=== PATIENT | male | born 1945 | race Caucasian/White ===

== ENCOUNTER 2016-12-01 09:40 | Emergency (ER) | payer OTHER ==
[2016-12-01 09:56] VITALS: BP 149/93; PULSE 79; TEMP 98.1; BMI 33.6
[2016-12-01] MEDS ORDERED: KETOROLAC TROMETHAMINE 15 MG/ML VIAL IVPUSH ONE (10:56)
[2016-12-01] MEDS ORDERED: KETOROLAC TROMETHAMINE 30 MG/1 ML VIAL ONE (11:02)
--- NOTE | 2016-12-01 11:14 | PDOC ---
History of Present Illness - General Chief Complaint: Pain Stated Complaint: BACK PAIN Time Seen by Provider: 12/01/16 10:42 History Source: Patient Exam Limitations: No Limitations - History of Present Illness Travel History: No Initial Comments: 12/01/16 11:11 71 yr male history of HTN, kidney stones presents with low back pain radiates to his suprapubic area and testicles started early this am. Pt denies fever, vomited x2 . Pt states feels the same as previous kidney stones. Timing/Duration: reports: constant, changing over time Quality: reports: moderate Abdominal Pain Onset Location: reports: suprapubic Past History - Past Medical History Allergies/Adverse Reactions: Allergies Allergy/AdvReac Type Severity Reaction Status Date / Time No Known Allergies Allergy Verified 12/01/16 09:56 Home Medications: Ambulatory Orders Ketorolac Tromethamine [Toradol] 10 mg PO TID PRN #15 tablet 12/01/16 Tamsulosin HCl [Flomax] 0.4 mg PO HS #14 cap.er.24h 12/01/16 Diabetes: Yes Disorders: Yes (KIDNEY STONES) HTN: Yes Other medical history: ARTHRITIS - Family Disease History Comment:: 12/01/16 11:13 none relevant - Psycho/Social/Smoking Cessation Hx Anxiety: No Suicidal Ideation: No Smoking History: Never smoked Hx Alcohol Use: No Drug/Substance Use Hx: No Substance Use Type: None Abd/GI Specific PMHX - Complaint Specific PMHX Colitis: No Diverticulitis: No Gall Bladder Disease: No GERD: No Hepatitis: No Irritable Bowel Synd (IBS): No Pancreatitis: No GI Ulcer Disease: No Review of Systems - Review of Systems Able to Perform ROS?: Yes Is the patient limited [place] proficient: No Constitutional: No: Symptoms Reported HEENTM: No: Symptoms Reported ABD/GI: Yes: Symptoms Reported : Yes: Symptoms Reported *Physical Exam - Vital Signs Last Vital Signs Temp Pulse Resp BP Pulse Ox 98.1 F 79 20 149/93 96 12/01/16 09:53 12/01/16 09:53 12/01/16 09:53 12/01/16 09:53 12/01/16 09:53 - Physical Exam General Appearance: Yes: Nourished, Appropriately Dressed HEENT: positive: EOMI, MEÑO, TMs Normal, Pharynx Normal Neck: positive: Supple Respiratory/Chest: positive: Lungs Clear, Normal Breath Sounds Cardiovascular: positive: Regular Rhythm, Regular Rate Gastrointestinal/Abdominal: positive: Normal Bowel Sounds, Tender (suprapubic ) , Soft Musculoskeletal: positive: Normal Inspection Extremity: positive: Normal Capillary Refill, Normal Inspection, Normal Range of Motion Integumentary: positive: Normal Color, Dry, Warm Neurologic: positive: tourist escort II-XII NML intact, Fully Oriented, Alert, Normal Mood/ Affect ED Treatment Course - LABORATORY CBC & Chemistry Diagram: 12/01/16 10:55 12/01/16 10:55 - Consult/PCP Time Called: 13:00 Consult Reason/Comments: Dr.El Hester on vacation covering is Dr Rahul Gonsalez - Additional Consults Time Called: 13:25 Reason/Comments: paged no answer x3 Medical Decision Making - Medical Decision Making 12/01/16 11:14 cc: flank pain to groin, scrotum no testicle tenderness pt is able to urinate no fever no nausea at present 12/01/16 12:09 12/01/16 13:16 pain improved with toradol. ct resulted pt is pain free no nausea or vomiting. all dc plans discussed with pt and his and all questions asked and answered. 12/01/16 13:16 12/01/16 14:14 12/01/16 14:14 *DC/Admit/Observation/Transfer Diagnosis at time of Disposition: Renal colic on left side - Discharge Dispostion Disposition: HOME Condition at time of disposition: Good - Prescriptions Prescriptions: Tamsulosin HCl [Flomax] 0.4 mg PO HS #14 cap.er.24h Ketorolac Tromethamine [Toradol] 10 mg PO TID PRN #15 tablet PRN Reason: Pain - Referrals Referrals: Tere Murphy MD [Primary Care Provider] - - Patient Instructions Additional Instructions: drink lots of water strain all urine take the medication as prescribed follow with the urologist call today to make appointment return if any worsening symptoms
[2016-12-01 11:30] LABS: MCH 28.8 pg (25.7-33.7); MCHC 34.2 g/dl (32.0-35.9); MEAN CELL VOLUME 84.3 fl (80-96); MEAN PLT VOLUME 9.1 fl (7.5-11.1); PLATELET COUNT 168 K/MM3 (134-434); RDW 13.8 % (11.9-15.9); WHITE BLOOD COUNT 7.3 K/mm3 (4.0-10.0)
[2016-12-01 11:32] LABS: URINE APPEARANCE CLEAR; URINE BILIRUBIN NEGATIVE (NEGATIVE); URINE COLOR YELLOW; URINE GLUCOSE (UA) NEGATIVE (NEGATIVE); URINE KETONE NEGATIVE (NEGATIVE); URINE LEUK ESTERASE NEGATIVE (NEGATIVE); URINE NITRITE NEGATIVE (NEGATIVE); URINE PROTEIN NEGATIVE (NEGATIVE); URINE UROBILINOGEN NEGATIVE E.U./dl (0.2-1.0)
[2016-12-01 11:38] LABS: URINE BLOOD 3+ (NEGATIVE)
[2016-12-01 11:55] LABS: URINE MUCUS RARE; URINE RBC 501 /hpf (0-3)
[2016-12-01 11:57] LABS: ALBUMIN 4.1 g/dl (3.4-5.0); BILIRUBIN,TOTAL 0.6 mg/dL (0.2-1.0); CALCIUM 9.3 mg/dL (8.5-10.1); CREATININE 1.5 mg/dL (0.7-1.3); TOT PROT 7.6 g/dl (6.4-8.2)
== END 2016-12-01 14:16 | disposition home or self-care (01) ==
LOC: JERFT 09:40
PROC: 3E0333Z Introduction of Anti-inflammatory into Peripheral Vein, Percutaneous Approach (ICD-10-PCS; principal; 2016-12-01)
DX: N13.2 Hydronephrosis with renal and ureteral calculous obstruction (principal); Z87.442 Personal history of urinary calculi; I10 Essential (primary) hypertension; E11.9 Type 2 diabetes mellitus without complications; M12.9 Arthropathy, unspecified
CPT/HCPCS: 36415; 74176; 80053; 81003; 81015; 85027; 87086; 99281-25

== ENCOUNTER 2018-07-17 12:15 | Day surgery (SDC) | payer OTHER ==
[2018-07-14 17:40] VITALS: BMI 34.5
--- NOTE | 2018-07-17 14:39 | EKG ---
Test Reason : Blood Pressure : / mmHG Vent. Rate : 058 BPM Atrial Rate : 058 BPM P-R Int : 156 ms QRS Dur : 106 ms QT Int : 450 ms P-R-T Axes : 156 208 167 degrees QTc Int : 441 ms SUSPECT ARM LEAD REVERSAL, INTERPRETATION ASSUMES NO REVERSAL UNUSUAL P AXIS, POSSIBLE ECTOPIC ATRIAL BRADYCARDIA RIGHT SUPERIOR AXIS DEVIATION NONSPECIFIC ST AND T WAVE ABNORMALITY ABNORMAL ECG NO PREVIOUS ECGS AVAILABLE Confirmed by STEPHON WILSON, EDIN ([id number]) on 07/17/2018 2:39:00 PM Referred By: Cash Gray Confirmed By:EDIN SZYMANSKI MD
[2018-07-17] MEDS ORDERED: PROPOFOL 20 ML ONE (14:47)
[2018-07-17] MEDS ORDERED: KETOROLAC TROMETHAMINE 30 MG/1 ML VIAL ONE (15:02)
--- NOTE | 2018-07-17 15:27 | OP ---
Operative Note - Note: Operative Date: 07/17/18 Pre-Operative Diagnosis: Right Renal stone Operation: Right ESWL Findings: 5 mm lower pole Right renal stone Post-Operative Diagnosis: Same as Pre-op Surgeon: Cash Gray Anesthesia: Fractional Estimated Blood Loss (mls): 0
[2018-07-17 18:12] VITALS: BP 116/62; PULSE 49; TEMP 97
--- NOTE | 2018-07-18 10:47 | OP ---
DATE OF OPERATION: 07/17/2018 PREOPERATIVE DIAGNOSIS: Right renal stone. POSTOPERATIVE DIAGNOSIS: Right renal stone. PROCEDURE: Right extracorporeal shock wave lithotripsy. ATTENDING: Marisel Santiago MD ANESTHESIA: Fractional. DESCRIPTION OF OPERATION: The patient was brought in the operating room and placed in supine position on the operating room table. Ultrasonography and fluoroscopy were performed. A 5-mm right lower-pole stone was identified. At this point, anesthesia was administered to the patient as well as preoperative antibiotics. The patient then underwent shock wave lithotripsy; 2500 impulses at 17 joules of power were administered to the stone. Excellent fragmentation was noted under real-time ultrasonography and fluoroscopy. There were no complications noted. MARISEL SANTIAGO M.D. [id number]
== END 2018-07-17 17:15 | disposition home or self-care (01) ==
LOC: JASU-SURG 12:15
PROVIDERS: ATTEND Urology
PROC: 0TF3XZZ Fragmentation in Right Kidney Pelvis, External Approach (ICD-10-PCS; principal; 2018-07-17 14:00)
DX: N20.0 Calculus of kidney (principal)
CPT/HCPCS: 93005; 93010